=== PATIENT | female | born 1980 | race Caucasian/White ===

== ENCOUNTER 2024-09-02 04:09 | Emergency (ER) | payer OTHER ==
[~2024-09-02] VITALS: Ht 152.4 cm; Wt 80.7 kg
[2024-09-02] MEDS ORDERED: SERTRALINE HCL100 MG PO (04:27)
[2024-09-02] MEDS ORDERED: ONDANSETRON ODT8 MG PO (04:28)
[2024-09-02] MEDS ORDERED: ZANAFLEX4 M1 PO (04:28)
[2024-09-02] MEDS ORDERED: LYRICA300 MG PO (04:29)
[2024-09-02] MEDS ORDERED: D3 DOTS50 MCG PO (04:30)
[2024-09-02] MEDS ORDERED: diazePAM 10 MG/2 ML SYR IM ONE (04:30)
[2024-09-02] MEDS ORDERED: PROTONIX20 MG PO (04:30)
[2024-09-02] MEDS ORDERED: KETOROLAC TROMETHAMINE 60 MG/2 ML VIAL IM ONE (04:30)
[2024-09-02] MEDS ORDERED: GABAPENTIN 300 MG CAP PO ONE (04:30)
[2024-09-02] MEDS ORDERED: HYDROCODON-ACE1 EA10 PO (05:24)
[2024-09-02] MEDS ORDERED: HYDROCODONE BIT/ACETAMINOPHEN 5/325 MG 1 TAB HOME.PACK PO ONE (05:30)
[2024-09-02] MEDS ORDERED: methylPREDNISolone 4 MG HOME.PACK PO ONE (05:30)
[2024-09-02 05:46] VITALS: BP 118/87
== END 2024-09-02 04:45 | disposition home or self-care (01) ==
LOC: ED 04:09
DX: M54.10 Radiculopathy, site unspecified (principal); E11.9 Type 2 diabetes mellitus without complications; Z88.8 Allergy status to other drugs, medicaments and biological substances; Z79.899 Other long term (current) drug therapy
CPT/HCPCS: 72040; 72070; 84703; 96372; 99283-25; A9270; J1885; J3360